=== PATIENT | male | born 1990 | race Two or more races ===

== ENCOUNTER 2018-08-07 14:42 | Inpatient (IN) | payer OTHER ==
--- NOTE | 2018-08-07 15:23 | EDPHY ---
H & P Stated Complaint: 1 week l face numbness today r ringing in ear/feeling weak r arm/off balanc Time Seen by Provider: 08/07/18 15:10 HPI/ROS: CHIEF COMPLAINT: Right-sided weakness HISTORY OF PRESENT ILLNESS: 28-year-old male presents with right-sided weakness. Onset of left facial numbness and weakness 1 week ago. He awoke this morning with right-sided weakness, involving his right arm and leg. Associated with difficulty walking throughout the day. The symptoms have gradually worsened and prompted his visit. No headache or head injury. No history of CVA or TIA. 2 months ago he was seen in the emergency department and diagnosed with hypertension. He took a 1 month supply of antihypertensive medication, which was subsequently discontinued as an outpatient. REVIEW OF SYSTEMS: complete 10 point ROS reviewed and is negative except for the noted elements in the HPI - Personal History Current Tetanus Diphtheria and Acellular Pertussis (TDAP): Yes - Medical/Surgical History Hx Asthma: No Hx Chronic Respiratory Disease: No Hx Diabetes: No Hx Cardiac Disease: No Hx Renal Disease: No Hx Cirrhosis: No Hx Alcoholism: No Hx HIV/AIDS: No Hx Splenectomy or Spleen Trauma: No Other PMH: mri for facial numbness /blurred vision sept - Social History Smoking Status: Never smoked Alcohol Use: Sober Additional Social History: Single - Physical Exam Exam: General Appearance: Alert, pleasant Eyes: Pupils equal and round, no conjunctival pallor or injection ENT, Mouth: Mucous membranes moist Neck: Normal inspection Respiratory: Lungs are clear to auscultation Cardiovascular: Regular rate and rhythm Gastrointestinal: Abdomen is soft and nontender Neurological: A&O, mild left facial weakness, normal strength the right arm and leg, gait is unstable and right leg is weak with ambulation Skin: Warm and dry Extremities: Normal inspection Psychiatric: Mood and affect normal Constitutional: Initial Vital Signs Temperature (C) 37.1 C 08/07/18 15:01 Heart Rate 82 08/07/18 15:01 Respiratory Rate 18 08/07/18 15:01 Blood Pressure 166/121 H 08/07/18 15:01 O2 Sat (%) 96 08/07/18 15:01 O2 Delivery Mode Room Air Allergies/Adverse Reactions: No Known Allergies Allergy (Verified 08/07/18 15:00) Home Medications: Medication Instructions Recorded NK [No Known Home Meds] 08/07/18 Medical Decision Making - Diagnostics EKG Interpretation: EKG interpreted by me reveals normal sinus rhythm, rate 82, no ST or T segment changes. Interpretation: Normal EKG Imaging Results: Imaging Impressions Head CT 08/07/18 15:19 Impression: No acute intracranial findings. Findings discussed with KITA SCOTT 08/07/2018 at 16:11. Head CTA 08/07/18 15:19 Impression: 1. No acute vascular findings. MRI is recommended for further evaluation. 2. Minimal narrowing of the right vertebral artery, without visible dissection. 3. Additional findings, as above. Stenoses are calculated using [place] Symptomatic Carotid Endarterectomy Trial (NASCET) criteria. Findings discussed with Kita Scott M.D., on August 07, 2018 at 1611 hours. E:amm Neck CTA 08/07/18 15:19 Impression: 1. No acute vascular findings. MRI is recommended for further evaluation. 2. Minimal narrowing of the right vertebral artery, without visible dissection. 3. Additional findings, as above. Stenoses are calculated using [place] Symptomatic Carotid Endarterectomy Trial (NASCET) criteria. Findings discussed with Kita Scott M.D., on August 07, 2018 at 1611 hours. E:amm Brain MRI 08/07/18 16:12 Impression: 1. Multiple sclerosis, with multiple demyelinating plaques throughout bilateral cerebral hemispheres as well as right cerebral peduncle and bilateral middle cerebellar peduncles. 2. No acute infarct, acute hemorrhage, hydrocephalus, or mass effect. Findings and recommendations discussed with Emergency Department physician, Kita Scott M.D., at 1739 hours, on August 07, 2018. Final report concurs with initial preliminary interpretation. Imaging: Discussed imaging studies w/ concrete building assembler Radiologist, I viewed and interpreted images myself ED Course/Re-evaluation: This patient presents with right the extremity and left facial weakness, consistent with CVA. Greater than 12 hr since onset. Not a tPA candidate. 1610: CT/CTA of the head and neck read by Dr. Sorto unremarkable. No evidence of acute CVA. MRI of the brain ordered. Aspirin 325 mg orally given. MRI of the brain reveals multiple sclerosis, which explains this patient's presentation. Results discussed with the patient. The hospitalist service was consulted for admission. Neurology was consulted. d/w Dr. Tinoco, will see the patient in the hospital. Solumedrol 1gm IV given for multiple sclerosis. Differential Diagnosis: Altered mental status including but not limited to hypoglycemia, infectious process, electrolyte abnormality, head injury, CVA, and intoxicants. - Data Points Laboratory Results: Laboratory Results 08/07/18 15:14 08/07/18 15:14 08/07/18 08/07/18 08/07/18 15:18 15:14 15:14 WBC RBC Hgb POC Hgb 16.7 gm/dL gm/dL (13.7-17.5) Hct POC Hct 49 % % (40-51) MCV MCH MCHC RDW Plt Count MPV Neut % (Auto) Lymph % (Auto) [place] % (Auto) Eos % (Auto) Baso % (Auto) Nucleat RBC Rel Count Absolute Neuts (auto) Absolute Lymphs (auto) Absolute Monos (auto) Absolute Eos (auto) Absolute Basos (auto) Absolute Nucleated RBC Immature Gran % Immature Gran # PT 13.2 SEC SEC (12.0-15.0) INR 0.98 (0.83-1.16) APTT 30.4 SEC SEC (23.0-38.0) POC Sodium 142 mEq/L mEq/L (135-145) Sodium 140 mEq/L mEq/L (135-145) POC Potassium 3.8 mEq/L mEq/L (3.3-5.0) Potassium 4.4 mEq/L mEq/L (3.3-5.0) POC Chloride 104 mEq/L mEq/L (97-110) Chloride 104 mEq/L mEq/L (97-110) Carbon Dioxide 24 mEq/l mEq/l (22-31) Anion Gap 12 mEq/L mEq/L (6-14) POC BUN 11 mg/dL mg/dL (7-23) BUN 12 mg/dL mg/dL (7-23) Creatinine 0.8 mg/dL mg/dL (0.7-1.3) POC Creatinine 0.8 mg/dL mg/dL (0.7-1.3) Estimated GFR > 60 Glucose 110 mg/dL H mg/dL (70-100) POC Glucose 109 mg/dL H mg/dL (70-100) Calcium 10.5 mg/dL H mg/dL (8.5-10.4) 08/07/18 15:14 WBC 15.16 10^3/uL H 10^3/uL (3.80-9.50) RBC 5.84 10^6/uL 10^6/uL (4.40-6.38) Hgb 15.7 g/dL g/dL (13.7-17.5) POC Hgb Hct 46.5 % % (40.0-51.0) POC Hct MCV 79.6 fL L fL (81.5-99.8) MCH 26.9 pg L pg (27.9-34.1) MCHC 33.8 g/dL g/dL (32.4-36.7) RDW 14.6 % % (11.5-15.2) Plt Count 450 10^3/uL H 10^3/uL (150-400) MPV 10.5 fL fL (8.7-11.7) Neut % (Auto) 71.2 % % (39.3-74.2) Lymph % (Auto) 22.2 % % (15.0-45.0) [place] % (Auto) 5.2 % % (4.5-13.0) Eos % (Auto) 0.5 % L % (0.6-7.6) Baso % (Auto) 0.5 % % (0.3-1.7) Nucleat RBC Rel Count 0.0 % % (0.0-0.2) Absolute Neuts (auto) 10.80 10^3/uL H 10^3/uL (1.70-6.50) Absolute Lymphs (auto) 3.37 10^3/uL H 10^3/uL (1.00-3.00) Absolute Monos (auto) 0.79 10^3/uL 10^3/uL (0.30-0.80) Absolute Eos (auto) 0.07 10^3/uL 10^3/uL (0.03-0.40) Absolute Basos (auto) 0.07 10^3/uL 10^3/uL (0.02-0.10) Absolute Nucleated RBC 0.00 10^3/uL 10^3/uL (0-0.01) Immature Gran % 0.4 % % (0.0-1.1) Immature Gran # 0.06 10^3/uL 10^3/uL (0.00-0.10) PT INR APTT POC Sodium Sodium POC Potassium Potassium POC Chloride Chloride Carbon Dioxide Anion Gap POC BUN BUN Creatinine POC Creatinine Estimated GFR Glucose POC Glucose Calcium Medications Given: Hydralazine HCl (Apresoline) 10 mg IVP Q6HRS PRN PRN Reason: sbp > 170 Stop: 02/03/19 18:02 Last Admin: 08/07/18 19:45 Dose: 10 mg Discontinued Medications Aspirin (Aspirin) 325 mg PO EDNOW ONE Stop: 08/07/18 16:15 Last Admin: 08/07/18 16:20 Dose: 325 mg Methylprednisolone Sodium (Succinate 1,000 mg/ Dextrose) 100 mls @ 100 mls/hr IV EDNOW ONE Stop: 08/07/18 18:51 Last Admin: 08/07/18 18:26 Dose: 100 mls Point of Care Test Results: Chemistry 08/07/18 15:18 POC Sodium 142 mEq/L mEq/L (135-145) POC Potassium 3.8 mEq/L mEq/L (3.3-5.0) POC Chloride 104 mEq/L mEq/L (97-110) POC BUN 11 mg/dL mg/dL (7-23) POC Creatinine 0.8 mg/dL mg/dL (0.7-1.3) POC Glucose 109 mg/dL H mg/dL (70-100) ISTAT H&H 08/07/18 15:18 POC Hgb 16.7 gm/dL gm/dL (13.7-17.5) POC Hct 49 % % (40-51) Departure - Departure Disposition: [facility] Clinical Impression: Multiple sclerosis Condition: Fair
[2018-08-07] MEDS ORDERED: IOPAMIDOL (ISOVUE 370) 100 ML BTL IV ONE (15:25)
[2018-08-07 15:27] LABS: PLATELET COUNT 450 10^3/uL (150-400)
[2018-08-07 15:35] LABS: INR 0.98 (0.83-1.16); PROTIME(PATIENT) 13.2 SEC (12.0-15.0)
[2018-08-07] MEDS ORDERED: ASPIRIN 325 MG TAB PO ONE (16:14)
[2018-08-07] MEDS ORDERED: methylPREDNISolone SOD SUCC 1,000 MG in D5W 100 ML IV ONE (17:52)
[2018-08-07] MEDS ORDERED: ACETAMINOPHEN 325 MG TAB PO PRN (18:02)
[2018-08-07] MEDS ORDERED: ONDANSETRON 4 MG/2 ML VIAL IVP PRN (18:02)
[2018-08-07] MEDS ORDERED: oxyCODONE IR 5 MG TAB PO PRN (18:02)
[2018-08-07] MEDS ORDERED: PROMETHAZINE HCL 25 MG/ML INJ IVP PRN (18:02)
[2018-08-07] MEDS ORDERED: HYDROCODONE/APAP 5/325 TAB PO PRN (18:02)
[2018-08-07] MEDS ORDERED: ONDANSETRON DISINTEGRATING 4 MG TAB PO PRN (18:02)
[2018-08-07] MEDS ORDERED: hydrALAZINE 20 MG/ML VIAL IVP PRN (18:03)
--- NOTE | 2018-08-07 21:33 | PDGENHP ---
History and Physical - Chief Complaint right sided weakness - History of Present Illness 28 yo M with no significant PMH presenting with new onset of right sided weakness, right facial weakness and right eye movement abnormality. He notes that he has noticed the facial and eye sxs for about a week but the right upper and lower extremity weakness began this morning. He also has ringing in his right ear. He notes he is having a hard time walking due to the right leg weakness but also due to the ringing in his ear making his equilibrium seem off. He has never had similar sxs in the past. He has not had fever or chills, he has no headache. He has not noticed change in bowel or bladder control. History Information - Allergies/Home Medication List Allergies/Adverse Reactions: No Known Allergies Allergy (Verified 08/07/18 15:00) Home Medications: NK [No Known Home Meds] 08/07/18 [Last Taken Unknown] I have personally reviewed and updated: family history, medical history, social history, surgical history - Past Medical History no pertinent PMH - Surgical History Reports: no pertinent surgical hx - Family History Positive for: hypertension (brother), stroke (mother) - Social History Smoking Status: Never smoked Alcohol Use: Rarely Drug Use: None Review of Systems Review of Systems: ROS: 10pt was reviewed & negative except for what was stated in HPI & below Physical Exam Physical Exam: Temp Pulse Resp BP Pulse Ox 37.1 C 75 18 164/109 H 97 08/07/18 18:36 08/07/18 18:36 08/07/18 18:36 08/07/18 20:53 08/07/18 18:36 Constitutional: no apparent distress, appears nourished Eyes: PERRL, other (right lid lag and occasional disconjugate gaze) Ears, Nose, Mouth, Throat: moist mucous membranes, hearing normal Cardiovascular: regular rate and rhythym, no murmur, rub, or gallop Respiratory: no respiratory distress, no rales or rhonchi, clear to auscultation Gastrointestinal: normoactive bowel sounds, soft, non-tender abdomen Genitourinary: no bladder tenderness Skin: warm, normal color Musculoskeletal: no muscle tenderness, abnormal gait Neurologic: weakness (right upper extremity), facial droop Psychiatric: interacting appropriately, not anxious, not encephalopathic Lab Data & Imaging Review 08/07/18 15:14 08/07/18 15:14 WBC 15.16 10^3/uL (3.80-9.50) H 08/07/18 15:14 RBC 5.84 10^6/uL (4.40-6.38) 08/07/18 15:14 Hgb 15.7 g/dL (13.7-17.5) 08/07/18 15:14 POC Hgb 16.7 gm/dL (13.7-17.5) 08/07/18 15:18 Hct 46.5 % (40.0-51.0) 08/07/18 15:14 POC Hct 49 % (40-51) 08/07/18 15:18 MCV 79.6 fL (81.5-99.8) L 08/07/18 15:14 MCH 26.9 pg (27.9-34.1) L 08/07/18 15:14 MCHC 33.8 g/dL (32.4-36.7) 08/07/18 15:14 RDW 14.6 % (11.5-15.2) 08/07/18 15:14 Plt Count 450 10^3/uL (150-400) H 08/07/18 15:14 MPV 10.5 fL (8.7-11.7) 08/07/18 15:14 Neut % (Auto) 71.2 % (39.3-74.2) 08/07/18 15:14 Lymph % (Auto) 22.2 % (15.0-45.0) 08/07/18 15:14 [place] % (Auto) 5.2 % (4.5-13.0) 08/07/18 15:14 Eos % (Auto) 0.5 % (0.6-7.6) L 08/07/18 15:14 Baso % (Auto) 0.5 % (0.3-1.7) 08/07/18 15:14 Nucleat RBC Rel Count 0.0 % (0.0-0.2) 08/07/18 15:14 Absolute Neuts (auto) 10.80 10^3/uL (1.70-6.50) H 08/07/18 15:14 Absolute Lymphs (auto) 3.37 10^3/uL (1.00-3.00) H 08/07/18 15:14 Absolute Monos (auto) 0.79 10^3/uL (0.30-0.80) 08/07/18 15:14 Absolute Eos (auto) 0.07 10^3/uL (0.03-0.40) 08/07/18 15:14 Absolute Basos (auto) 0.07 10^3/uL (0.02-0.10) 08/07/18 15:14 Absolute Nucleated RBC 0.00 10^3/uL (0-0.01) 08/07/18 15:14 Immature Gran % 0.4 % (0.0-1.1) 08/07/18 15:14 Immature Gran # 0.06 10^3/uL (0.00-0.10) 08/07/18 15:14 PT 13.2 SEC (12.0-15.0) 08/07/18 15:14 INR 0.98 (0.83-1.16) 08/07/18 15:14 APTT 30.4 SEC (23.0-38.0) 08/07/18 15:14 POC Sodium 142 mEq/L (135-145) 08/07/18 15:18 Sodium 140 mEq/L (135-145) 08/07/18 15:14 POC Potassium 3.8 mEq/L (3.3-5.0) 08/07/18 15:18 Potassium 4.4 mEq/L (3.3-5.0) 08/07/18 15:14 POC Chloride 104 mEq/L (97-110) 08/07/18 15:18 Chloride 104 mEq/L (97-110) 08/07/18 15:14 Carbon Dioxide 24 mEq/l (22-31) 08/07/18 15:14 Anion Gap 12 mEq/L (6-14) 08/07/18 15:14 POC BUN 11 mg/dL (7-23) 08/07/18 15:18 BUN 12 mg/dL (7-23) 08/07/18 15:14 Creatinine 0.8 mg/dL (0.7-1.3) 08/07/18 15:14 POC Creatinine 0.8 mg/dL (0.7-1.3) 08/07/18 15:18 Estimated GFR > 60 08/07/18 15:14 Glucose 110 mg/dL (70-100) H 08/07/18 15:14 POC Glucose 109 mg/dL (70-100) H 08/07/18 15:18 Calcium 10.5 mg/dL (8.5-10.4) H 08/07/18 15:14 Visualized and Interpreted imaging results: Yes Interpretation: brain MRI: c/w MS with multiple demyelinating plaques through bilateral cerebral hemispheres. head/neck CTA: negative. head CT: negative Visualized and Interpreted EKG results: Yes EKG Interpretation: Positive for: normal sinsus rhythm Assessment & Plan Assessment: Multiple sclerosis (Acute) 28 yo M presenting with new onset neurologic complaints found to have a new dx of MS # MS: presumed based on MRI imaging results and patient presentation. Neurology has been consulted and will determine if further confirmatory testing is necessary. Patient has been given a dose of solumedrol in ER, will hold off on further steroids pending neurology evaluation. Discussed dx with patient. # uncontrolled htn: patient notes he had been diagnosed with htn in the past but was only given a one month supply of bp meds and has been off of them for some time. Will start lisinopril and prn hydralazine. # hyperglycemia: will check a1c # observation status patient new to my care. Old records reviewed and summarized as above. Care plan reviewed with ER doctor as above.
[2018-08-07] MEDS: LISINOPRIL 10 MG TAB PO SCH (22:41)
--- NOTE | 2018-08-07 23:35 | CPEKG ---
Test Reason : OPEN Blood Pressure : / mmHG Vent. Rate : 082 BPM Atrial Rate : 083 BPM P-R Int : 163 ms QRS Dur : 099 ms QT Int : 387 ms P-R-T Axes : 018 013 013 degrees QTc Int : 452 ms Sinus rhythm Confirmed by Kita Watkins ([id number]) on 08/07/2018 11:35:01 PM Referred By: Confirmed By:Kita Watkins
[2018-08-08] MEDS ORDERED: methylPREDNISolone SOD SUCC 125 MG/2 ML VIAL IVP SCH
[2018-08-08 05:17] LABS: PLATELET COUNT 477 10^3/uL (150-400)
[2018-08-08] MEDS: LISINOPRIL 10 MG TAB PO SCH (09:29)
[2018-08-08] MEDS: methylPREDNISolone SOD SUCC 1 GM in D5W 100 ML IV SCH (10:40)
--- NOTE | 2018-08-08 11:05 | GCON ---
NEUROLOGY CONSULT DATE OF CONSULTATION: 08/08/2018 REFERRING PHYSICIAN: Anselmo Huffman MD CHIEF COMPLAINT: Question multiple sclerosis. HISTORY OF PRESENT ILLNESS: The patient is a very pleasant 28-year-old gentleman who currently works at [employer]. He has no past medical history. No past neurologic history. No family history of neurologic disease. his mother who is present stated she has had a stroke from trauma related to a car accident. Otherwise, no other neurologic family history. The patient denies having had episodes of neurologic deficit in the past. He states he went to the ER once for light sensitivity and migraine headache, but without any focal motor or sensory symptoms. One week ago, he began having left facial numbness, which he did not make much of, but then yesterday morning, he started having numbness from his right shoulder into his lower extremity with sparing of the face. Because of this, he came to the emergency department. He had a full neurologic/stroke evaluation. Non-contrast head CT was unremarkable. CT-A of the head and neck showed no acute vascular findings. Finally, he then had an MRI in the ED, which was abnormal showing multiple areas of demyelinating plaques throughout the hemispheres, right cerebral peduncle, and bilateral middle cerebellar peduncles. There was no acute infarct , hemorrhage, hydrocephalus, or mass effect noted. This was done without contrast. He was given 1 g of IV Solu-Medrol in the emergency department. He also had some tinnitus on the right with the right-sided numbness yesterday. Otherwise, he denied any focal motor weakness symptoms symptomatically. He has had no meningismus, fevers, rash or any other infection signs or symptoms. REVIEW OF SYSTEMS: 10-point review of systems was done and only pertinent to the HPI. Physically, he did deny any recent illnesses, infections, sick contacts, immunizations, drugs of abuse, stimulants, or any other related factors. He has had no meningismus, fevers, rash or any other infection signs or symptoms. For past medical history, social history, family history, home medications, allergies, please see Dr. Huffman's H and P. PHYSICAL EXAM: VITAL SIGNS: Blood pressure 130s/80s, afebrile 36.6, respirations 16, heart rate 70s to 80s. GENERAL: No meningismus. He is in no acute distress, very pleasant. NEUROLOGIC: Higher mental function: Awake, alert, lucid. No aphasia. Cranial nerve: He has subjective decreased light touch in the left face and normal sensation in the right face. Motor: He has no focal weakness I could detect. Sensory: On general sensory exam, there is decreased light touch subjectively in the right upper and lower extremities. Coordination was normal in the upper extremities. IMPRESSION: 1. Abnormal MRI brain. Overall, the clinical history and abnormal MRI brain imaging is consistent with demyelinating disease. Going forward, I recommend we complete 3 days of IV Solu -Medrol 1 g daily. I have put in orders for the 2 remaining doses for today and tomorrow. He has had no meningismus, fevers, rash or any other infection signs or symptoms. Regarding ongoing care for multiple sclerosis, we discussed options at length. He would like to see the [facility] [place] for further evaluation, confirmation of diagnosis, and treatment options. I think this is reasonable. He prefers to have a lumbar puncture with [facility] for subspecialty care. I think that is reasonable. We will plan on discharging him after his third dose of IV Solu-Medrol tomorrow unless it can be arranged as outpatient (if Physical Therapy think this is reasonable). We also recommend Physical Therapy assess the patient for ongoing recommendations. Finally, I gave him the number for the [facility] [place]. His mother will make the appointment today. No further recommendations. We will continue to follow this patient as needed. Please do not hesitate to call with any questions or changes in neurologic status with this very pleasant patient. 45 total minutes of floor time today reviewing inpatient records, including angiography, actual MRI imaging, and showing MR imaging to the family. This included direct counseling and coordination of care. /[id number]/MODL MTDD
--- NOTE | 2018-08-08 13:56 | HOSPPROG ---
Hospitalist Progress Note Assessment/Plan: 28 yo M presenting with new onset neurologic complaints found to have a new dx of MS. Today is my first encounter w the patient, chart reviewed. 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 Has not felt much improvement w the steroids. Objective: Vital Signs Temp Pulse Resp BP Pulse Ox 37.1 C 98 16 137/84 H 92 08/08/18 12:00 08/08/18 12:00 08/08/18 12:00 08/08/18 12:00 08/08/18 12:00 Laboratory Results 08/08/18 04:10 08/08/18 04:10 08/07/18 08/08/18 08/09/18 05:59 05:59 05:59 Intake Total 350 Balance 350 PT 13.2 SEC (12.0-15.0) 08/07/18 15:14 INR 0.98 (0.83-1.16) 08/07/18 15:14 - Physical Exam Constitutional: no apparent distress, obese Eyes: PERRL Ears, Nose, Mouth, Throat: hearing normal Cardiovascular: regular rate and rhythym Respiratory: no respiratory distress Gastrointestinal: normoactive bowel sounds Skin: warm Musculoskeletal: full muscle strength Neurologic: AAOx3, numbness (left cheek area, right upper and lower ext) Psychiatric: interacting appropriately, not anxious ICD10 Worksheet Patient Problems: Problems Problem Status Onset Multiple sclerosis Acute
[2018-08-08] MEDS ORDERED: TEMAZEPAM 15 MG CAP PO PRN (15:58)
[2018-08-08] MEDS: DIAZEPAM 5 MG TAB PO PRN (16:52)
[2018-08-08] MEDS: MELATONIN 3 MG TAB PO SCH (22:26)
[2018-08-09] MEDS: DIAZEPAM 5 MG TAB PO PRN (03:39)
[2018-08-09] MEDS: methylPREDNISolone SOD SUCC 1 GM in D5W 100 ML IV SCH (08:31)
[2018-08-09] MEDS: LISINOPRIL 10 MG TAB PO SCH (08:32)
--- NOTE | 2018-08-09 12:42 | PDMN ---
Medical Necessity Medical necessity: Change to inpt as of 08/08/18 @ 1839. Pt meets inpt criteria per MD order and Neurology GRG. 28 y/o presented w/new onset neurological complaints, admitted w/new diagnosis of MS. Upgraded to inpt as pt requiring ongoing IV steroids, PT/OT. Est LOS>2MN for eval/management of above.
--- NOTE | 2018-08-09 16:09 | ASMTCMCOM ---
CM Note CM Note Notes: CM note was not saved yesterday in [employer]: Pt in with symptoms of MS, new onset. 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. PT/OT rec inpatient rehab, [facility] pending. IPR consult order is in. Pt amenable to inpatient rehab, pt [facility] has to approve authorization which the [facility] inpatient rehab admissions staff is submitting to [facility]. CM to follow. Date Signed: 08/09/2018 03:50 PM Electronically Signed By:JAMI Mcintosh
--- NOTE | 2018-08-09 16:12 | ASMTCMCOM ---
CM Note CM Note Notes: [place] authorized [facility] inpatient rehab this afternoon. D/c orders were not able to be input in time due to technical issues. Fatou at [facility] inpatient rehab verified verbal orders not an option so pt will d/c tomorrow. Pt family is bedside and they can transport tomorrow. CM to follow. Date Signed: 08/09/2018 03:52 PM Electronically Signed By:JAMI Mcintosh
--- NOTE | 2018-08-09 17:51 | HOSPPROG ---
Hospitalist Progress Note Assessment/Plan: 28 yo M presenting with new onset neurologic complaints found to have a new dx of MS. Today is my first encounter w the patient, chart reviewed. 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 No other issues Objective: Vital Signs Temp Pulse Resp BP Pulse Ox 36.9 C 77 16 116/90 H 95 08/09/18 16:00 08/09/18 16:00 08/09/18 16:00 08/09/18 16:00 08/09/18 16:00 08/08/18 08/09/18 08/10/18 05:59 05:59 05:59 Intake Total 1550 600 Balance 1550 600 PT 13.2 SEC (12.0-15.0) 08/07/18 15:14 INR 0.98 (0.83-1.16) 08/07/18 15:14 - Physical Exam Constitutional: no apparent distress, appears nourished, not in pain Eyes: PERRL, anicteric sclera, EOMI Ears, Nose, Mouth, Throat: moist mucous membranes, hearing normal, ears appear normal Cardiovascular: regular rate and rhythym, edema, No JVD Respiratory: no respiratory distress, no rales or rhonchi, reduced air movement Gastrointestinal: normoactive bowel sounds, No tenderness, No ascites Skin: warm, normal color, No mottled Musculoskeletal: normal joint ROM, no joint effusions, generalized weakness Neurologic: AAOx3 Psychiatric: interacting appropriately, not anxious, not encephalopathic ICD10 Worksheet Patient Problems: Problems Problem Status Onset Multiple sclerosis Acute
[2018-08-09] MEDS: MELATONIN 3 MG TAB PO SCH (22:01)
[2018-08-10 08:05] VITALS: BP 129/82
[2018-08-10] MEDS ORDERED: IBUPROFEN 200 MG TAB PO PRN (09:09)
--- NOTE | 2018-08-10 09:12 | PDIAF ---
- Diagnosis Diagnosis: Demyelinating disease Code Status: Full Code - Medication Management Discharge Medications: electronically signed and located in the Home Medication List. - Orders Services needed: Physical Therapy, Occupational Therapy Diet Recommendation: no restrictions on diet Diet Texture: Regular Texture Diet Additional Instructions: After discharge from rehab, please make appointment with [facility] - Follow Up Care Current Providers and Referrals: ELENA PÉREZ [Primary Care Provider] - As per Instructions
[2018-08-10] MEDS: LISINOPRIL 10 MG TAB PO SCH (09:23)
--- NOTE | 2018-08-10 10:30 | ASMTLACE ---
LACE Length of stay for Answers: 3 days current admission Acuity / Level of Answers: Yes Care: Did the patient have an inpatient admission? Comorbidities - select Answers: Other Notes: HTN all that apply # of Emergency department Answers: 1-2 visits in the last 6 months Score: 8 Date Signed: 08/10/2018 10:29 AM Electronically Signed By:JAMI Mcintosh
--- NOTE | 2018-08-10 10:31 | ASMTCMCOM ---
CM Note CM Note Notes: Pt medically stable [facility]. Pt family to transport. Orders faxed to IPR. INA Royal to call report. Date Signed: 08/10/2018 10:30 AM Electronically Signed By:JAMI Mcintosh
--- NOTE | 2018-08-10 12:34 | ASDISCHSUM ---
Discharge Information Plan Status:Inpatient Rehab Medically Cleared to Leave: Discharge Date:08/10/2018 09:54 AM CM D/C Disposition: ADT D/C Disposition:[facility] IP Projected Discharge Date:08/10/2018 11:00 AM Transportation at D/C: Discharge Delay Reason: Follow-Up Date:08/10/2018 11:00 AM Discharge Slot: Final Diagnosis: Placement Information Referral Type:Rehabilitation Hospital Referral ID:[id number] Provider Name:[facility] Address 1:[address] Phone Number: Address 2: Fax Number: [facility] Selection Factors: State:[place] Patient Contact Information Contact Name:YASIRROSSYAUDI Relationship:Mother Address:[address] [facility] [address] City:[place] Alternate Phone: State/Zip Code:[place] [address] Email: Financial Information Financial Class:HMO and PPO Plans Primary Plan Desc:[employer] Primary Plan Number:[id number] Secondary Plan Desc: Secondary Plan Number: Assessment Information LACE LACE Length of stay for Answers: 3 days current admission Acuity / Level of Answers: Yes Care: Did the patient have an inpatient admission? Comorbidities - select Answers: Other Notes: HTN all that apply # of Emergency department Answers: 1-2 visits in the last 6 months Score: 8 Date Signed: 08/10/2018 10:29 AM Electronically Signed By:JAMI Mcintosh [facility] CM Progress Note CM Note CM Note Notes: CM note was not saved yesterday in [employer]: Pt in with symptoms of MS, new onset. 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 PT/OT rec inpatient rehab, [facility] pending. [facility] consult order is in. Pt amenable to inpatient rehab, pt [facility] has to approve authorization which the [facility] inpatient rehab admissions staff is submitting to [place] today. CM to follow. Date Signed: 08/09/2018 03:50 PM Electronically Signed By:JAMI Mcintosh [facility] CM Progress Note CM Note CM Note Notes: [place] authorized [facility] inpatient rehab this afternoon. D/c orders were not able to be input in time due to technical issues. Fatou at [facility] inpatient rehab verified verbal orders not an option so pt will d/c tomorrow. Pt family is bedside and they can transport tomorrow. CM to follow. Date Signed: 08/09/2018 03:52 PM Electronically Signed By:JAMI Mcintosh [facility] CM Progress Note CM Note CM Note Notes: Pt medically stable for d/c to [facility] inpatient rehab. Pt family to transport. Orders faxed to [facility]. INA Royal to call report. Date Signed: 08/10/2018 10:30 AM Electronically Signed By:JAMI Mcintosh Intervention Information
--- NOTE | 2018-08-11 13:01 | GDS ---
DISCHARGE DIAGNOSES: 1. Presumed multiple sclerosis due to imaging suggestive of demyelination disease. 2. New diagnosis of hypertension on this admission, started on antihypertensive. 3. Hyperglycemia, likely related to steroids with this admission. 4. Obesity. 5. Insomnia. CONSULTATIONS: Zheng Tinoco MD, of Neurology. PROCEDURES: 1. Head CT. 2. Head CTA. 3. Brain MRI. BRIEF HISTORY: Please see dictated H and P for complete details. In brief, the patient is a 28-year -old male, who had no previous significant medical history, who presented with new onset neurologic d eficits. His CTA of the head and neck showed no acute vascular findings and MRI of the brain showed multiple areas of demyelinating plaques throughout the hemispheres, right cerebral peduncle and right mid cerebellar peduncles. He has been given 3 days of IV Solu-Medrol and is now transferred to [facility]. RESULTS PENDING: None. DIET: Per previous. ACTIVITY: As tolerated per rehab. DISCHARGE MEDICATIONS: Please see med reconciliation. FOLLOWUP INSTRUCTIONS: 1. Transfer to rehab. 2. Establish care at [facility]. /[id number]/MODL
== END 2018-08-10 09:54 | DRG 60 ==
LOC: F3N 18:32 → OBSVTOIN 08-08 15:59
PROVIDERS: ADMIT Internal Medicine; ATTEND Internal Medicine
DX: G35 Multiple sclerosis (principal); I10 Essential (primary) hypertension; E66.9 Obesity, unspecified; Z68.37 Body mass index [BMI] 37.0-37.9, adult; G47.00 Insomnia, unspecified; R73.9 Hyperglycemia, unspecified
CPT/HCPCS: 82435-PO; 82565-PO; 82947-PO; 84132-PO; 84295-PO; 84520-PO; 85014-PO; 97162-GP; 97166-GO; G0378; J0360; J2930; Q9967

== ENCOUNTER 2018-08-09 15:34 | Inpatient (IN) | payer OTHER ==
[2018-08-10] MEDS ORDERED: SENNOSIDES/DOCUSATE SODIUM TAB PO PRN (11:37)
[2018-08-10] MEDS ORDERED: MAG HYDROX/AL HYDROX/SIMETH 30 ML UDCUP PO PRN (11:37)
[2018-08-10] MEDS ORDERED: TEMAZEPAM 15 MG CAP PO PRN (11:44)
[2018-08-10] MEDS ORDERED: ONDANSETRON DISINTEGRATING 4 MG TAB PO PRN (11:44)
--- NOTE | 2018-08-10 13:15 | GHP ---
Post admission physician evaluation and rehabilitation treatment plan DATE OF ADMISSION: 08/10/2018 Date of evaluation 08/10/2018. Time of evaluation: 10:30 a.m. Referring physician: [facility]. Impairment group: 3.1. Multiple sclerosis. Date of onset: 08/07/2018. REFERRING PHYSICIAN: Dr. Huffman. CONSULTING PHYSICIAN: Neurology. REHABILITATION DIAGNOSES: Multiple sclerosis, right-sided weakness, gait dysfunction. ETIOLOGIC DIAGNOSIS: Right body involvement (left brain). HISTORY OF PRESENT ILLNESS: 28-year-old male who was in reasonably good health until 08/07/2018, when he was admitted to [facility] with a 2 month history of diplopia and tinnitis is affecting his right ear. Family members report that he initially had an MRI 2 months prior to admission, which was normal. On admission to [facility], head CT was unremarkable, head/neck CTA did not show acute vascular findings. Brain MRI was positive for multiple areas of demyelination throughout the hemispheres, right cerebral peduncle, bilateral cerebellar peduncles. These changes are felt to be consistent with multiple sclerosis. He was started on 3 days of IV Solu-Medrol. He was also treated for uncontrolled hypertension and hyperglycemia. At the time of the preadmission screen, the patient's functional status was consistent with dependence with functional mobility and ADLs related to visual deficits, balance deficits, dizziness and limited coordination. Currently, patient states that his main complaint is tinnitus in the right ear, as well as diplopia of the right eye. He reports that he has numbness and tingling from the top of the right shoulder involving the right upper extremity and right lower extremity. He does not report right arm or right leg weakness. He feels somewhat weak and fatigued, but does not describe specific weakness in a myotomal or peripheral nerve distribution. His family members report that he did very little walking while in the hospital with contact guard assist using an FWW. The patient admits to feeling somewhat unsteady on his feet. He denies bowel/bladder incontinence. LABORATORY STUDIES: WBC from 08/08/2018, 14.24, most likely elevated due to IV steroid. Hemoglobin 16.2,hematocrit 48. Sodium 140, potassium 4.8, BUN 15, creatinine 0.8. Calcium 10.2. Hemoglobin A1c 5.9. Brain MRI from 08/07/2018, multi periventricular white matter lesions throughout bilateral cerebral hemispheres with the largest in the left frontal periventricular white matter measuring 22 x 17 mm. Additional large left middle cerebellar peduncle lesion measuring 23 x 17 mm. Small right middle cerebellar peduncle 8 mm lesion noted. Right cerebral peduncle 10 mm lesion identified. No evidence of acute infarct. No evidence of acute hemorrhage, hydrocephalus or mass effect. PRECAUTIONS: Fall risk. Chair alarm. Decreased balance. Bed alarm. PAST MEDICAL HISTORY: ? Tinnitus. Otherwise, noncontributory. PAST SURGICAL HISTORY: Noncontributory. PREHOSPITALIZATION MEDICATIONS: Family reports that he was not taking any medications prior to recent hospitalization at [facility]. Admission medications: Tylenol 650 mg p.o. q.4 hours p.r.n. pain. Maalox 30 mL p.o. q.6 hours. Lisinopril 10 mg p.o. daily. Melatonin 3 mg p.o. at bedtime. Zofran 4 mg p.o. q.4 hours p.r.n. nausea, vomiting. Senokot S 1-2 tablets p.o. twice daily p.r.n. constipation. Restoril 50 mg p.o. at bedtime. ALLERGIES: No known drug allergies. PSYCHOSOCIAL HISTORY: He lives with his parents in a 2nd level apartment. 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 His family member states that he was completely functionally independent prior to recent hospitalization. He is not but has a girlfriend, Penny, who was present during today's evaluation. FAMILY HISTORY: Noncontributory. REVIEW OF SYSTEMS: HEENT: Reports severe tinnitus right ear. Reports diplopia , right eye. NEUROLOGICAL: Denies headache. Reports numbness and tingling right upper and right lower extremity. Denies upper or lower extremity weakness. RESPIRATORY: Denies shortness of breath or productive cough. CARDIOVASCULAR: Denies chest pain or angina-like symptoms. GI: Denies constipation. Reports excellent appetite. Denies bowel incontinence. : Denies bladder incontinence. Denies dysuria or flank pain. SKIN: Denies skin breakdown in the back, buttock, or sacral region. LYMPHS: Denies lower extremity edema. The remainder of the 10-point review of systems was negative. PHYSICAL EXAM: CONSTITUTION: Heavyset, stocky male, lying in bed, appears comfortable. Tends to close right eye. VITALS: Blood pressure 153/102. Heart rate 66 and regular. Respiratory rate 14. Temperature 36.6. Weight pending. HEENT: Extraocular movements are intact. Tracks across all visual moore. Nystagmus noted with tracking to the right. Pupils are equal, round, reactive to light and accommodation. Dentition is good. NECK: Supple. HEART : Regular rate and rhythm; no murmurs, rubs, or gallops. LUNGS: Clear to auscultation. ABDOMEN: Slightly protuberant. Soft, tender, nondistended. Normoactive bowel sounds all 4 quadrants. No masses. EXTREMITIES: No upper or lower extremity edema. Negative right and left Homans test. NEUROLOGICAL: He is alert and oriented x3. He converses without much difficulty. No dysarthria. Cranial nerves 2-12 grossly intact. Motor exam reveals no focal weakness in the upper or lower extremities. Deep tendon reflexes unelicitable upper and lower extremities. Sensation to light touch was diminished in the right upper and right lower extremity. Current level of function: Per the preadmission screen the following was noted : Diet is regular. Dressing upper and lower body SBA. Continent of bowel and bladder. Bed mobility independent. Transfers, min assist with verbal cues. Stand pivot with FWW, wide base of support. Equipment FWW. Balance: CGA to min assist for safety, Tinetti score. Endurance fair. Gait, 15 feet with min assist and FWW with verbal cues, 15 feet without an assistive device with moderate assist and verbal cues with wide-based unsteady gait, loss of balance to the right. Wheelchair TBA, stairs TBA; safety precautions, fall risk. Functional status: Visual disturbance with horizontal nystagmus. Complains of dizziness with mobility. IMPRESSION: This is a 28-year-old male who was in good health and functioning completely independently prior to recent admission on 08/07/2018, for diplopia with subsequent MRI which showed demyelination changes consistent with multiple sclerosis. His main complaint is tinnitus in the right ear, right-sided diplopia, and general fatigue. No focal motor deficits on today's exam. GOALS AND PLANS: Patient will need physical and occupational therapy to progress to independent level with basic mobility and ADLs with or without assistive device for safe discharge to home with mother and brother as per POOF. May need assistive device to provide increased balance. The patient will be instructed in safe use of any adaptive devices and equipment. He will have physical and occupational therapy as well as speech and language pathology for 60 minutes per day for each discipline, 5-7 days per week. Estimated length of stay is 10 days. It is expected upon discharge he will continue to benefit from outpatient physical and occupational therapy. ASSESSMENT/PLAN: 1. New onset of diplopia and right-sided sensory disturbance with gait dysfunction secondary to multiple sclerosis. He has completed a short course of intravenous prednisone while hospitalized at [facility]. He will have followup at the [facility] in [place] following discharge. The family states that arrangements have already been made for this. We will have Case Management verify this. 2. Gait dysfunction. Physical and occupational therapy for gait training, core strengthening, coordinated efforts for upper and lower extremity strengthening to improve gait with her without assistive device and activities of daily living dysfunction. 3. Hypertension, monitor blood pressures q.shift. Continue lisinopril 10 mg daily. 4. Tinnitus, right ear, rated as severe per patient. He has already tried a course of Valium over at [facility] without improvement. Will ask speech pathology for their input. May also consider ENT consult for their suggestions. 5. Dizziness, begin meclizine 25 mg 1 p.o. q.a.m. 6. Diplopia. The patient has prism glasses. We will ask occupational therapy to further evaluate and make recommendations regarding possible patching versus modification to glasses. 7. Insomnia. Continue melatonin 3 mg p.o. at bedtime. 8. Pain management. Tylenol 650 p.o. q.4 hours. We can increase this to a 1000 mg three times daily if needed. Would avoid opioid analgesics for now unless patient begins to complain of severe neuropathic pain. 9. Followup. He will be followed by the [facility] in [place]. /[id number]/MODL MTDD
[2018-08-10] MEDS: ACETAMINOPHEN 325 MG TAB PO PRN (14:51)
[2018-08-10] MEDS ORDERED: LISINOPRIL 5 MG TAB PO ONE (18:15)
[2018-08-10] MEDS ORDERED: MELATONIN 3 MG TAB PO SCH (21:00)
[2018-08-11] MEDS: LISINOPRIL 10 MG TAB PO SCH (09:22)
--- NOTE | 2018-08-11 09:29 | PDOREHIP ---
Admission [facility] - Admission - 3 Day Assessment Period Admission Date/Day 1: 08/10/18 Day 2: 08/11/18 Day 3: 08/12/18 - Active Diagnoses Comorbidities and Co-existing Conditions at Admission: 06120. None of the Above - Skin Conditions # Stage 1 Pressure Ulcers-Admission: 0 # Stage 2 Pressure Ulcers-Admission: 0 # Stage 3 Pressure Ulcers-Admission: 0 # Stage 4 Pressure Ulcers-Admission: 0 # Unstageable Pressure Ulcers (Non-remove Dress)-Admission: 0 # Unstageable Pressure Ulcers (Slough/Eschar)-Admission: 0 # Unstageable Pressure Ulcers (Deep Tissue Injury)-Admission: 0
--- NOTE | 2018-08-11 09:33 | SOAPPROG ---
SOAP Progress Note Assessment/Plan: Assessment: ASSESSMENT/PLAN: 1. New onset of diplopia and right-sided sensory disturbance with gait dysfunction secondary to multiple sclerosis. He has completed a short course of intravenous prednisone while hospitalized [facility]. He will have followup at the [facility] in [place] following discharge. The family states that arrangements have already been made for this. We will have Case Management verify this. 2. Gait dysfunction. Physical and occupational therapy for gait training, core strengthening, coordinated efforts for upper and lower extremity strengthening to improve gait with her without assistive device and activities of daily living dysfunction. 3. Hypertension, monitor blood pressures q.shift. Continue lisinopril 10 mg daily. Blood pressure this morning 127/83. He was given an additional 5 mg of lisinopril yesterday after admission as he was slightly hypertensive. 4. Tinnitus, right ear, rated as severe per patient. He has already tried a course of Valium over at [facility] without improvement. Will ask speech pathology for their input. May also consider ENT consult for their suggestions. 5. Dizziness, begin meclizine 25 mg 1 p.o. q.a.m. 6. Diplopia. The patient has prism glasses. We will ask occupational therapy to further evaluate and make recommendations regarding possible patching versus modification to glasses. 7. Insomnia. Continue melatonin 3 mg p.o. at bedtime. He reports he slept well last night and did not ask for the melatonin 8. Pain management. Tylenol 650 p.o. q.4 hours. We can increase this to a 1000 mg three times daily if needed. Would avoid opioid analgesics for now unless patient begins to complain of severe neuropathic pain. He is not complaining of neuropathic pain in the right upper or right lower extremity 9. Followup. He will be followed by the [facility] in [place]. Plan: 08/11/18 09:29 08/11/18 09:34 Subjective: He complains of a post auricular headache, severe tinnitus right ear and diplopia right eye. He reports that he slept well last night. Objective: Vital Signs Temp Pulse Resp BP Pulse Ox 36.6 C 69 18 127/83 H 96 08/11/18 06:12 08/11/18 06:12 08/11/18 06:12 08/11/18 09:22 08/11/18 06:12 08/10/18 08/11/18 08/12/18 05:59 05:59 05:59 Intake Total 1050 Balance 1050 Physical Exam - Physical Exam General Appearance: alert, no apparent distress EENT: PERRL/EOMI, other (Nystagmus when tracking to the right) Respiratory: lungs clear, normal breath sounds Cardiac/Chest: regular rate, rhythm, No edema Abdomen: non-tender, soft, other (Hypoactive bowel sounds) Skin: warm/dry, cyanosis Neuro/Psych: sensory deficit (Decreased sensation to light touch right upper and right lower extremity) ICD10 Worksheet Patient Problems: Problems Problem Status Onset Multiple sclerosis Acute
[2018-08-11] MEDS ORDERED: MECLIZINE HCL 25 MG TAB PO PRN (09:35)
[2018-08-11] MEDS: MELATONIN 3 MG TAB PO SCH ×2 (10:37→21:11)
[2018-08-11] MEDS: MECLIZINE HCL 25 MG TAB PO SCH ×2 (10:40→21:11)
[2018-08-11] MEDS: ACETAMINOPHEN 325 MG TAB PO PRN (13:45)
[2018-08-12] MEDS: LISINOPRIL 10 MG TAB PO SCH (08:21)
[2018-08-12] MEDS: MECLIZINE HCL 25 MG TAB PO SCH ×2 (08:21→20:33)
--- NOTE | 2018-08-12 11:38 | SOAPPROG ---
SOAP Progress Note Assessment/Plan: Assessment: New diagnosis of multiple sclerosis, with impaired coordination and balance, and diplopia. * Initial functional independence measure is 100 on 08/12/2018. He is independent with bed mobility and transfers. He ambulated 250 ft with a front wheeled walker standby assist. He climbed and descended 6 stairs with contact guard assist. He has decreased balance and endurance. Trials of cane verses trekking pole are in process; he will not go home with a walker. Tinnitus, right ear, rated as severe per patient. He has already tried a course of Valium at the hospital without improvement. Will ask speech pathology for their input. * Not clicking or tapping so unlikely due to muscle spasms related to MS. * Has abnormal tympanic membrane on right; unclear whether this may contribute. * Johnathan inhibitors can contribute to tinnitus. Will discontinue lisinopril and initiate losartan for blood pressure control. * Advise ENT evaluation after discharge. Hypertension * Change from lisinopril to losartan as Johnathan inhibitor may contribute to tinnitus. * Continue to monitor. Dizziness. Continue meclizine 25 mg 1 p.o. q.a.m. Diplopia. Resolved, per Occupational therapy. Insomnia. Continue melatonin 3 mg p.o. at bedtime. Sleeping well. * Crowded airway and reported history of snoring. Consider referral for sleep study after discharge to rule out sleep apnea. Pain management. Continue acetaminophen 650 p.o. q.4 hours p.r.n. Obesity. Appreciate dietitian assistance. DISPOSITION: Attended staffing, 15 min. Discussed with case management, nursing, PT, OT. Plans to return home where he lives with his mother and brother. There 20 steps to enter the home. Tentative discharge date set for . FOLLOW-UP: He plans to continue treatment at the [facility]. Advise ENT follow-up if tinnitus does not resolve. Consider referral for sleep study to rule out obstructive sleep apnea. 08/12/18 11:38 Subjective: Complains of ringing in his right ear. It is a pure single tone, with what he describes as some rhythmic variation. There is no clicking or tapping. He denies hearing loss or ear pain. He denies any history of loud sound exposures or ear infections. He denies head congestion. Objective: Vital Signs Temp Pulse Resp BP Pulse Ox 36.7 C 94 14 129/92 H 96 08/12/18 08:00 08/12/18 11:09 08/12/18 08:00 08/12/18 11:09 08/12/18 11:09 08/11/18 08/12/18 08/13/18 05:59 05:59 05:59 Intake Total 1050 1480 120 Balance 1050 1480 120 - Time Spent With Patient Time Spent With Patient: Greater than 35 min floor time today, including more than 50% of time in coordination of care during staffing, and counseling patient. Physical Exam - Physical Exam General Appearance: WD/WN, alert, no apparent distress EENT: TM abnormal (R) (Tympanic membrane appears sclerotic and dull. No erythema, minimal cerumen.), other (Crowded airway, Mallampati class 4. ), No hearing deficit (Intact bilaterally to finger rub.), No pharyngeal erythema Respiratory: normal breath sounds, No crackles, No rhonchi, No wheezing Cardiac/Chest: regular rate, rhythm, No diastolic murmur, No systolic murmur Skin: normal color, warm/dry Neuro/Psych: alert, normal mood/affect, oriented x 3 ICD10 Worksheet Patient Problems: Problems Problem Status Onset Multiple sclerosis Acute
[2018-08-12] MEDS: MELATONIN 3 MG TAB PO SCH (20:33)
[2018-08-13] MEDS: LOSARTAN POTASSIUM 25 MG TAB PO SCH (07:27)
[2018-08-13] MEDS: MECLIZINE HCL 25 MG TAB PO SCH ×2 (07:27→20:50)
--- NOTE | 2018-08-13 09:09 | SOAPPROG ---
SOAP Progress Note Assessment/Plan: 28-year-old male with newly diagnosed multiple sclerosis 08/07/2018 after 2 month history of symptoms, primarily with new diplopia, right-sided sensory disturbance and gait dysfunction with intermittent mobility, self-care. Today's update: Overall doing well and participating with therapies. He endorses improvement in his diplopia, sensory symptoms, denies any new neurological changes. He reports a history of concussions but none associated with dizziness or diplopia. Sleep is fair on melatonin, no changes to this. Notice and dizziness likely related to central location, related to new diagnosis of MS, and the location of lesions in the deep brain structures. A total of 25 min was spent on the floor in the care of the patient, the majority of which was spent counseling coordination of care regarding recovery patterns of multiple sclerosis and functional goals. Additional issues that were reviewed without change today include hypertension, recently changed from lisinopril to losartan for tinnitus, pain management, obesity. 08/13/18 09:06 08/13/18 09:11 Subjective: Chief complaint: Rehabilitation progress and tinnitus No acute events overnight. Patient denies any new shortness of breath or chest pain, no new numbness, tingling, or weakness. Denies any leg swelling. Notes that he still has some right sided ongoing tinnitus, notes a history of prior concussions with dizziness or tinnitus. Otherwise he feels like functionally he is improving, sleeping fair, no other new complaints or concerns. Objective: Vital Signs Temp Pulse Resp BP Pulse Ox 36.7 C 71 18 139/95 H 97 08/13/18 07:17 08/13/18 07:17 08/13/18 07:17 08/13/18 07:17 08/13/18 07:17 08/12/18 08/13/18 08/14/18 05:59 05:59 05:59 Intake Total 1480 730 Balance 1480 730 Physical Exam - Physical Exam General Appearance: WD/WN, alert, no apparent distress EENT: No scleral icterus (R), No scleral icterus (L) Respiratory: lungs clear, normal breath sounds, No respiratory distress, No accessory muscle use Cardiac/Chest: normal peripheral pulses, regular rate, rhythm, No edema, No diastolic murmur, No systolic murmur Abdomen: normal bowel sounds, No distended Skin: normal color, warm/dry, No cyanosis, No diaphoresis Extremities: non-tender, No pedal edema, No calf tenderness, No swelling Neuro/Psych: alert, normal mood/affect, other (No nystagmus, wrapped in aiding movement the land were slightly slower than on the right but similar.) ICD10 Worksheet Patient Problems: Problems Problem Status Onset Multiple sclerosis Acute
[2018-08-13] MEDS: MELATONIN 3 MG TAB PO SCH (20:50)
[2018-08-14] MEDS: MECLIZINE HCL 25 MG TAB PO SCH ×2 (07:59→20:46)
[2018-08-14] MEDS: LOSARTAN POTASSIUM 25 MG TAB PO SCH (07:59)
--- NOTE | 2018-08-14 14:37 | SOAPPROG ---
SOAP Progress Note Assessment/Plan: Assessment: New diagnosis of multiple sclerosis, with impaired coordination and balance, and diplopia. * Initial functional independence measure is 100 on 08/12/2018. He is independent with bed mobility and transfers. He ambulated 250 ft with a front wheeled walker standby assist. He climbed and descended 6 stairs with contact guard assist. He has decreased balance and endurance. Trials of cane versus trekking pole are in process; he will not go home with a walker. Tinnitus, right ear, rated as severe per patient. He has already tried a course of Valium at the hospital without improvement. Will ask speech pathology for their input. * Not clicking or tapping so unlikely due to muscle spasms related to MS. * Has abnormal tympanic membrane on right; unclear whether this may contribute. * Johnathan inhibitors can contribute to tinnitus. Discontinued lisinopril and initiated losartan for blood pressure control; tinnitus has not improved.. * Advise ENT evaluation after discharge. Hypertension * Change from lisinopril to losartan as Johnathan inhibitor may contribute to tinnitus. * Continue to monitor. Dizziness. Continue meclizine 25 mg 1 p.o. q.a.m. Diplopia. Resolved, per Occupational therapy. Insomnia. Continue melatonin 3 mg p.o. at bedtime. Sleeping well. * Crowded airway and reported history of snoring. Consider referral for sleep study after discharge to rule out sleep apnea. Pain management. Continue acetaminophen 650 p.o. q.4 hours p.r.n. Obesity. Appreciate dietitian assistance. DISPOSITION: Plans to return home where he lives with his mother and brother. There 20 steps to enter the home. Tentative discharge date set for 08/16/2018. FOLLOW-UP: He plans to continue treatment at the [facility]. Advise ENT follow-up if tinnitus does not resolve. Consider referral for sleep study to rule out obstructive sleep apnea. 08/14/18 14:29 Subjective: Episodes of diarrhea have been noted by nursing. He denies nausea vomiting or abdominal pain. He wonders if he had a bad apple juice as it appeared to be thick and creamy when he came out of the container. Otherwise without complaints. No fevers or chills, no cough or dyspnea. Objective: Vital Signs Temp Pulse Resp BP Pulse Ox 36.7 C 76 16 130/85 H 95 08/14/18 07:57 11/14/18 07:57 08/14/18 07:57 08/14/18 07:57 08/14/18 07:57 08/13/18 08/14/18 08/15/18 05:59 05:59 05:59 Intake Total 730 500 120 Balance 730 500 120 Physical Exam - Physical Exam General Appearance: WD/WN, alert, no apparent distress, obese Respiratory: normal breath sounds, No crackles, No rhonchi, No wheezing Cardiac/Chest: regular rate, rhythm, No edema, No diastolic murmur, No systolic murmur Abdomen: normal bowel sounds, non-tender, soft, No distended Skin: normal color, warm/dry Neuro/Psych: alert, normal mood/affect, oriented x 3 ICD10 Worksheet Patient Problems: Problems Problem Status Onset Multiple sclerosis Acute
[2018-08-14] MEDS: MELATONIN 3 MG TAB PO SCH (20:46)
[2018-08-15] MEDS ORDERED: MECLIZINE HCL 12.5 MG TAB PO PRN (07:50)
[2018-08-15] MEDS: LOSARTAN POTASSIUM 25 MG TAB PO SCH (08:00)
[2018-08-15] MEDS ORDERED: MECLIZINE HCL 25 MG TAB PO PRN (08:00)
--- NOTE | 2018-08-15 08:08 | PDOREHIP ---
Admission [facility] - Admission - 3 Day Assessment Period Admission Date/Day 1: 08/10/18 Day 2: 08/11/18 Day 3: 08/12/18 - Active Diagnoses Comorbidities and Co-existing Conditions at Admission: [id number]. None of the Above Discharge [facility] - Discharge - 3 Day Assessment Period 2 Days Prior to Anticipated Discharge Date: 08/14/18 1 Day Prior to Anticipated Discharge Date: 08/15/18 Anticipated Discharge Date: 08/16/18 - Discharge Skin Conditions Unhealed Pressure Ulcer (1 or more/Stage 1 or >)-Discharge: 0. No # Stage 1 Pressure Ulcers-Discharge: 0 # Stage 2 Pressure Ulcers-Discharge: 0 # of These Stage 2 Pressure Ulcers Present on Admission: 0 # Stage 3 Pressure Ulcers-Discharge: 0 # of These Stage 3 Pressure Ulcers Present on Admission: 0 # Stage 4 Pressure Ulcers-Discharge: 0 # of These Stage 4 Pressure Ulcers Present on Admission: 0 # Unstageable Pressure Ulcers (Non-remove Dress)-Discharge: 0 # These Unstageable Pressure Ulcers (NRD)-Present on Admit: 0 # Unstageable Pressure Ulcers (Slough/Eschar)-Discharge: 0 # These Unstageable Pressure Ulcers(Slough) Present on Admit: 0 # Unstageable Pressure Ulcers (Deep Tissue Injury)-Discharge: 0 # These Unstageable Pressure Ulcers (DTI) Present on Admit: 0
--- NOTE | 2018-08-15 08:33 | SOAPPROG ---
SOAP Progress Note Assessment/Plan: 28-year-old male with newly diagnosed multiple sclerosis 08/07/2018 after 2 month history of symptoms, primarily with new diplopia, right-sided sensory disturbance and gait dysfunction with intermittent mobility, self-care. Today's update: Continues to make neurological improvements and progress in rehabilitation. Plan to go home tomorrow, discharge planning today. He remains slightly hypertensive without other symptoms. Losartan was recently increased to 25 mg, continue this dose. Additionally, he notes that the dizziness has essentially resolved at his current dose of meclizine, decreasing to 12.5 mg twice a day. Otherwise he feels like things are going well, continue rehabilitation plan. A total of 35 min was spent on the floor in the care of the patient, the majority of which was spent in counseling coordination of care regarding discharge planning Additional issues that were reviewed without change today include tinnitus, pain management, obesity. 08/13/18 09:06 08/13/18 09:11 08/15/18 08:31 Subjective: Chief complaint: Improved vertigo and function No acute events overnight. Patient denies any new shortness of breath or chest pain, no new numbness, tingling, or weakness. He endorses that things are going well from a functional standpoint, his dizziness has essentially completely resolved on meclizine. He is sleeping overall fairly well with a little bit of restlessness. Looking forward to going home. Objective: Vital Signs Temp Pulse Resp BP Pulse Ox 36.6 C 82 16 133/93 H 97 08/15/18 08:00 08/15/18 08:00 08/15/18 08:00 08/15/18 08:00 08/15/18 08:00 08/14/18 08/15/18 08/16/18 05:59 05:59 05:59 Intake Total 500 740 Balance 500 740 Physical Exam - Physical Exam General Appearance: WD/WN, alert, no apparent distress, obese EENT: No scleral icterus (R), No scleral icterus (L) Respiratory: No respiratory distress, No accessory muscle use Cardiac/Chest: normal peripheral pulses, regular rate, rhythm, No edema Skin: normal color, warm/dry, No cyanosis, No diaphoresis Extremities: non-tender, No pedal edema, No calf tenderness, No swelling Neuro/Psych: normal mood/affect, other (Using front wheel walker, decreased light touch sensation on the right leg compared to the left.) ICD10 Worksheet Patient Problems: Problems Problem Status Onset Multiple sclerosis Acute
[2018-08-15] MEDS: ACETAMINOPHEN 325 MG TAB PO PRN (19:31)
[2018-08-15] MEDS: MELATONIN 3 MG TAB PO SCH (21:10)
[2018-08-16] MEDS: LOSARTAN POTASSIUM 25 MG TAB PO SCH (08:31)
[2018-08-16] MEDS ORDERED: LOSARTAN POTASSIUM 25 MG TAB PO ONE (10:00)
[2018-08-16 12:37] VITALS: BP 150/98
--- NOTE | 2018-08-16 14:08 | GDS ---
ADMITTING DIAGNOSIS: Debility following initial diagnosis of multiple sclerosis. OTHER DISCHARGE DIAGNOSIS: Debility, following initial diagnosis of multiple sclerosis. OTHER DISCHARGE DIAGNOSES: 1. Tinnitus. 2. Hypertension. COMPLICATIONS: There were none. CONSULTATIONS: There were none. PROCEDURES: There were none. HISTORY/HOSPITAL COURSE: This patient came to inpatient rehabilitation from [facility]. He was admitted there on 2017, with a 2-month history of double vision and ringing in the right ear. He had a brain MRI, which showed multiple areas of demyelination throughout the hemispheres, the right cerebral peduncle, and the bilateral cerebellar peduncles , consistent with multiple sclerosis. He was treated with a 3-day course of IV methylprednisolone. He also had uncontrolled hypertension and hyperglycemia, which were treated in the hospital. He had deficits to balance, coordination and vision and was appropriate for inpatient rehabilitation. He had good progress in rehabilitation. He regained independence in bed mobility and transfers. He was able to ambulate 250 feet with a front-wheeled walker with standby assist and subsequently progressed to a trekking pole. He was able to climb and descend 6 stairs with contact guard assist. He was independent for grooming and hygiene, dressing and bathing. He had modified independence for transfers and ambulation using a trekking pole. He had mild dysarthria, as well as mild dysphagia. He worked with Speech and Language Pathology. He was on a regular texture diet with thin liquids. He was desensate on his left face and had mild oral phase dysphagia. He had tinnitus. Its onset was coincident with initiation of lisinopril, per his report, though review of documentation in the medical record seems to indicate that it was pre-existing. Lisinopril was stopped, and he was begun on losartan. It is unclear whether he had any improvement in tinnitus. Examination revealed what appeared to be sclerosis on the right tympanic membrane. He was advised to follow up with [facility] Th[facility] after his discharge. Hypertension. Lisinopril at 10 mg was stopped, and losartan at 25 mg was begun. Blood pressure was above target, with readings as high as 151/100 on the day of discharge. On the day of discharge, he was given an additional dose of losartan at 25 mg, and his discharge prescription was changed from 25 to 50 mg daily. On the day of discharge, he reported an episode of muscle spasm in his right upper extremity during the night. This resolved spontaneously. DISCHARGE PLAN: Discharge destination is home with his mother and a sibling, whom he lives with. CONDITION: Good. DIET: Regular. ACTIVITY: Ad jessica, but he is not to be driving. DISCHARGE MEDICATIONS: 1. Acetaminophen 650 mg p.o. q.4 hours p.r.n. 2. Melatonin 3 mg p.o. q.h.s. 3. Losartan 50 mg p.o. daily. 4. Meclizine 12.5 mg p.o. b.i.d. p.r.n. ISSUES TO BE ADDRESSED AT FOLLOWUP: 1. Multiple sclerosis. He will follow up with the [facility] at the [facility] on 08/30/2018. 2. Dysphagia and dysarthria. He will have continuing therapy with Speech and Language Pathology. 3. Hypertension. He can follow up with his primary care provider. 4. Tinnitus. He is advised to follow up with [facility], [facility] Thro[facility] for evaluation, including audiologic evaluation and attention to what appears to be a sclerotic right tympanic membrane. Copy requested to: [facility] [place], [place] /[id number]/MODL MTDD
== END 2018-08-16 15:30 | disposition home or self-care (01) | DRG 60 ==
LOC: BREH 08-10 10:10
PROVIDERS: ADMIT Internal Medicine; ATTEND Internal Medicine
DX: G35 Multiple sclerosis (principal); R26.9 Unspecified abnormalities of gait and mobility; H53.2 Diplopia; I10 Essential (primary) hypertension; R20.9 Unspecified disturbances of skin sensation; R42 Dizziness and giddiness; G47.00 Insomnia, unspecified; H93.11 Tinnitus, right ear; R73.9 Hyperglycemia, unspecified
CPT/HCPCS: 92526-GN; 92610-GN; 97110-GO; 97110-GP; 97112-GP; 97116-GP; 97163-GP; 97166-GO; 97530-GO; 97530-GP; 97535-GO; G0515-GO

== ENCOUNTER 2018-10-18 14:40 | Emergency (ER) | payer OTHER ==
--- NOTE | 2018-10-18 14:42 | EDPHY ---
H & P Time Seen by Provider: 10/18/18 14:42 HPI/ROS: HPI CHIEF COMPLAINT: Shortness of breath. HISTORY OF PRESENT ILLNESS: 28-year-old male, presents to the emergency room with shortness of breath. Patient has a history of MS recently diagnosed back in August, as well as hypertension, he is morbidly obese, presents to the emergency room shortness of breath. He reports to me this started at 4:00 a.m. Or close to 12 hr ago. He denies any chest pain. Main complaint shortness of breath. Denies focal weakness. Denies numbness and tingling, denies global weakness. No pain when he breathes in. No productive cough. No recent illness or fever. He arrives to emergency room in no acute distress. He has normal oxygen level. He denies cough or wheezing. Denies focal weakness. Denies focal numbness or tingling. No headache. No chest pain. Past Medical History: MS, hypertension, obesity Past Surgical History: appendectomy Social History: Denies drugs alcohol tobacco. Family History: Noncontributory ROS REVIEW OF SYSTEMS: 10 Systems were reviewed and negative with the exception of the elements mentioned in the history of present illness. Exam Constitutional nontoxic no acute distress, triage nursing summary reviewed, vital signs reviewed, awake/alert. Vital signs reviewed. Eyes normal conjunctivae and sclera, EOMI, PERRLA. HENT normal inspection, atraumatic, moist mucus membranes, no epistaxis, neck supple/ no meningismus, no raccoon eyes. Respiratory good air movement bilaterally, clear, clear to auscultation bilaterally, normal breath sounds, no respiratory distress, no wheezing. Cardiovascular rate normal, regular rhythm, no murmur, no edema, distal pulses normal. Gastrointestinal soft, non-tender, no rebound, no guarding, normal bowel sounds, no distension, no pulsatile mass. Genitourinary no CVA tenderness. Musculoskeletal no midline vertebral tenderness, full range of motion, no calf swelling, no tenderness of extremities, no meningismus, good pulses, neurovascularly intact. Skin pink, warm, & dry, no rash, skin atraumatic. Neurologic awake, alert and oriented x 3, AAOx3, moves all 4 extremities equally, motor intact, sensory intact, CN II-XII intact, normal cerebellar, normal vision, normal speech. Psychiatric normal mood/affect. Heme/Lymph/Immune no lymphadenopathy. Differential Diagnosis: Includes but is not limited to in a particular order, pneumonia, reactive airway disease, asthma, viral syndrome, anxiety, panic attack, MS Medical Decision Making: Plan for this patient EKG, chest x-ray, blood draw, cardiac monitor technician, IV fluid bolus, and re-evaluate. Re-evaluation: EKG interpretation by me on record in [employer] system. Impression time of EKG 15 17, sinus rhythm rate of 81 any signs of acute ischemia. 1840: Patient re-evaluated this time resting comfortably in no acute distress. He states he is feeling much better. He has received 1 L fluid. Patient currently getting 2nd L fluid. The patient has a normal EKG. Patient has a negative troponin Patient has a negative D-dimer Chest x-ray does not Show pneumonia. The patient would like to go. I discussed return precautions with him he understands return emergency room develops worsening shortness of breath, chest pain. Unclear etiology of shortness of breath. He does not appear globally weak for toxic he is afebrile he has no respiratory symptoms. It is possible this was anxiety. He denies chest pain. 804: P.m.. Patient re-evaluated resting comfortably good air movement. Not wheezing. No significant distress. Denies chest pain or shortness of breath. He would like to go home. Patient requesting go home. His vital signs have been stable. Vital signs 135/91, heart rate 84, respiratory 16 96% on room air. Patient ambulated well throughout the emergency without any distress. He is requesting albuterol take-home inhaler. He is not wheezing on exam and has clear breath sounds. I discussed return precautions with him he understands return emergency room if develops worsening shortness of breath, chest pain, fever, not doing well. I also do recommend he follows up with his primary care doctor Return precautions discussed with him and his family. They are comfortable this plan. I discussed strict return precautions with the patient understands return emergency room if develops worsening shortness of breath, chest discomfort, fever, vomiting. At time of discharge patient is sitting on the edge of the bed laughing and making jokes with his family. Ambulated well without any difficulty. Source: Patient, EMS - Medical/Surgical History Hx Asthma: No Hx Chronic Respiratory Disease: No Hx Diabetes: No Hx Cardiac Disease: No Hx Renal Disease: No Hx Cirrhosis: No Hx Alcoholism: No Hx HIV/AIDS: No Hx Splenectomy or Spleen Trauma: No Other PMH: mri for facial numbness /blurred vision jun, LAP APP2010 - Social History Smoking Status: Never smoked Constitutional: Initial Vital Signs Temperature (C) 36.6 C 10/18/18 14:40 Heart Rate 77 10/18/18 14:40 Respiratory Rate 20 10/18/18 14:40 Blood Pressure 137/109 H 10/18/18 14:40 O2 Sat (%) 98 10/18/18 14:40 O2 Delivery Mode Room Air O2 (L/minute) 1 Allergies/Adverse Reactions: No Known Allergies Allergy (Verified 08/07/18 15:00) Home Medications: Medication Instructions Recorded Acetaminophen [Tylenol 325mg (*)] 650 mg PO Q4HRS PRN tab 08/10/18 Losartan Potassium [Cozaar 50 mg 50 mg PO DAILY #30 tab 08/16/18 (*)] Medical Decision Making - Diagnostics Imaging Results: Imaging Impressions Chest X-Ray 10/18/18 15:03 Impression: Hypoventilatory chest with no acute findings. - Data Points Laboratory Results: Laboratory Results 10/18/18 15:15 10/18/18 15:15 10/18/18 10/18/18 10/18/18 15:24 15:15 15:15 WBC RBC Hgb Hct MCV MCH MCHC RDW Plt Count MPV Neut % (Auto) Lymph % (Auto) Sioux % (Auto) Eos % (Auto) Baso % (Auto) Nucleat RBC Rel Count Absolute Neuts (auto) Absolute Lymphs (auto) Absolute Monos (auto) Absolute Eos (auto) Absolute Basos (auto) Absolute Nucleated RBC Immature Gran % Immature Gran # PT 12.8 SEC SEC (12.0-15.0) INR 0.94 (0.83-1.16) APTT 31.7 SEC SEC (23.0-38.0) D-Dimer 0.40 ug/mLFEU ug/mLFEU (0.00-0.50) Sodium 137 mEq/L mEq/L (135-145) Potassium 4.5 mEq/L mEq/L (3.5-5.2) Chloride 104 mEq/L mEq/L (97-110) Carbon Dioxide 23 mEq/l mEq/l (22-31) Anion Gap 10 mEq/L mEq/L (6-14) BUN 20 mg/dL mg/dL (7-23) Creatinine 1.1 mg/dL mg/dL (0.7-1.3) Estimated GFR > 60 Glucose 100 mg/dL mg/dL (70-100) Calcium 9.6 mg/dL mg/dL (8.5-10.4) Magnesium 2.1 mg/dL mg/dL (1.6-2.3) Total Bilirubin 0.5 mg/dL mg/dL (0.1-1.4) Conjugated Bilirubin 0.5 mg/dL mg/dL (0.0-0.5) Unconjugated Bilirubin 0.0 mg/dL mg/dL (0.0-1.1) AST 30 IU/L IU/L (17-59) ALT 34 IU/L IU/L (21-72) Alkaline Phosphatase 90 IU/L IU/L (38-126) POC Troponin I 0.00 ng/mL ng/mL (0.00-0.08) NT-Pro-B Natriuret Pep 55 pg/mL pg/mL (0-125) Total Protein 7.5 g/dL g/dL (6.3-8.2) Albumin 4.4 g/dL g/dL (3.5-5.0) Lipase 84 IU/L IU/L (23-300) 10/18/18 15:15 WBC 14.12 10^3/uL H 10^3/uL (3.80-9.50) RBC 5.40 10^6/uL 10^6/uL (4.40-6.38) Hgb 15.5 g/dL g/dL (13.7-17.5) Hct 44.4 % % (40.0-51.0) MCV 82.2 fL fL (81.5-99.8) MCH 28.7 pg pg (27.9-34.1) MCHC 34.9 g/dL g/dL (32.4-36.7) RDW 13.5 % % (11.5-15.2) Plt Count 437 10^3/uL H 10^3/uL (150-400) MPV 11.2 fL fL (8.7-11.7) Neut % (Auto) 57.9 % % (39.3-74.2) Lymph % (Auto) 32.4 % % (15.0-45.0) Sioux % (Auto) 7.2 % % (4.5-13.0) Eos % (Auto) 1.8 % % (0.6-7.6) Baso % (Auto) 0.4 % % (0.3-1.7) Nucleat RBC Rel Count 0.0 % % (0.0-0.2) Absolute Neuts (auto) 8.17 10^3/uL H 10^3/uL (1.70-6.50) Absolute Lymphs (auto) 4.58 10^3/uL H 10^3/uL (1.00-3.00) Absolute Monos (auto) 1.01 10^3/uL H 10^3/uL (0.30-0.80) Absolute Eos (auto) 0.26 10^3/uL 10^3/uL (0.03-0.40) Absolute Basos (auto) 0.06 10^3/uL 10^3/uL (0.02-0.10) Absolute Nucleated RBC 0.00 10^3/uL 10^3/uL (0-0.01) Immature Gran % 0.3 % % (0.0-1.1) Immature Gran # 0.04 10^3/uL 10^3/uL (0.00-0.10) PT INR APTT D-Dimer Sodium Potassium Chloride Carbon Dioxide Anion Gap BUN Creatinine Estimated GFR Glucose Calcium Magnesium Total Bilirubin Conjugated Bilirubin Unconjugated Bilirubin AST ALT Alkaline Phosphatase POC Troponin I NT-Pro-B Natriuret Pep Total Protein Albumin Lipase Medications Given: Discontinued Medications Albuterol Sulfate (Proventil Inh Prepack) 1 mdi TAKEHOME EDNOW ONE Stop: 10/18/18 20:05 Last Admin: 10/18/18 20:07 Dose: 1 mdi Sodium Chloride (Ns) 1,000 mls @ 0 mls/hr IV EDNOW ONE; Wide Open PRN Reason: Protocol Stop: 10/18/18 15:04 Last Admin: 10/18/18 15:38 Dose: 1,000 mls Sodium Chloride (Ns) 1,000 mls @ 0 mls/hr IV ONCE ONE PRN Reason: Wide Open Stop: 10/18/18 17:57 Last Admin: 10/18/18 18:05 Dose: 1,000 mls Point of Care Test Results: Chemistry 10/18/18 15:24 POC Troponin I 0.00 ng/mL ng/mL (0.00-0.08) Departure - Departure Disposition: Home, Routine, Self-Care Clinical Impression: Shortness of breath Condition: Good Instructions: Dyspnea (ED), Shortness of Breath (ED) Additional Instructions: 1. Return emergency room if he develops any worsening symptoms includes shortness of breath, chest pain, not doing well 2. Follow up with her primary care doctor 3. Albuterol inhaler provided for you 2 puffs every 4 hr as needed. Return if worse. Referrals: Patient,NotPresent [Unknown] - As per Instructions
[2018-10-18] MEDS ORDERED: NS 1,000 ML IV ONE ×2 (15:03→17:56)
[2018-10-18 15:36] LABS: PLATELET COUNT 437 10^3/uL (150-400)
[2018-10-18 15:45] LABS: INR 0.94 (0.83-1.16); PROTIME(PATIENT) 12.8 SEC (12.0-15.0)
[2018-10-18 20:01] VITALS: BP 135/94
[2018-10-18] MEDS ORDERED: ALBUTEROL INH PREPACK MDI TAKEHOME ONE ×2 (20:03→20:04)
--- NOTE | 2018-10-18 21:57 | CPEKG ---
Test Reason : OPEN Blood Pressure : / mmHG Vent. Rate : 081 BPM Atrial Rate : 082 BPM P-R Int : 173 ms QRS Dur : 094 ms QT Int : 383 ms P-R-T Axes : 028 007 025 degrees QTc Int : 445 ms Sinus rhythm Confirmed by Fran Quiroz ([id number]) on 10/18/2018 9:56:58 PM Referred By: Confirmed By:Fran Quiroz
== END 2018-10-18 20:15 | disposition home or self-care (01) ==
LOC: EDUNIT#
DX: R06.02 Shortness of breath (principal); G35 Multiple sclerosis; E66.01 Morbid (severe) obesity due to excess calories; I10 Essential (primary) hypertension; E86.9 Volume depletion, unspecified
CPT/HCPCS: 84484-ER